=== PATIENT | male | born 1965 | race Native Hawaiian/Other Pacific Islander ===

== ENCOUNTER 2017-12-05 13:48 | Emergency (ER) | payer OTHER ==
[~2017-12-05] VITALS: Ht 182.9 cm; Wt 83.9 kg
[2017-12-05 14:34] LABS: PLATELET COUNT 115 K/uL (142-355)
[2017-12-05 14:50] LABS: POTASSIUM 3.7 mmol/L (3.6-5.2)
[2017-12-05 15:15] VITALS: BP 125/67; TEMP 97.7
[2017-12-05] MEDS ORDERED: DULOXETINE HCL60 MG PO (15:46)
[2017-12-05] MEDS ORDERED: MULTIVITAMI1 PO (15:46)
[2017-12-05] MEDS ORDERED: RISP1TAB PO (15:47)
[2017-12-05] MEDS ORDERED: LAXATIVE1 TAB PO (15:50)
[2017-12-05] MEDS ORDERED: ACID CONTROL MA20 MG PO (15:50)
[2017-12-05] MEDS ORDERED: SKIN PREP TOP (15:52)
[2017-12-05] MEDS ORDERED: OXYC5TAB24 PO (15:54)
[2017-12-05] MEDS ORDERED: ROWEEPRA500 MG PO (15:54)
[2017-12-05] MEDS ORDERED: ASCO500T18 PO (15:55)
[2017-12-05] MEDS ORDERED: GABA400C2 PO (15:55)
[2017-12-05] MEDS ORDERED: RISP2TAB2 PO (15:57)
[2017-12-05] MEDS ORDERED: TRAZ100T PO (15:58)
[2017-12-05] MEDS ORDERED: TYLENOL325 MG PO (15:59)
[2017-12-05] MEDS ORDERED: LORA2INJ21 IM (16:02)
[2017-12-05] MEDS ORDERED: NYST100010 EX (16:04)
[2017-12-05] MEDS ORDERED: DIVALPROEX125 MG PO (16:05)
== END 2017-12-05 15:15 | disposition other institution (70) ==
LOC: ED 13:48
DX: Z04.6 Encounter for general psychiatric examination, requested by authority (principal); R46.89 Other symptoms and signs involving appearance and behavior; I10 Essential (primary) hypertension
CPT/HCPCS: 36415; 80053; 81000; 85027; 93005; 99285

== ENCOUNTER 2021-12-07 13:21 | Emergency (ER) | payer OTHER ==
[~2021-12-07] VITALS: Ht 111.8 cm; Wt 68.5 kg
[~2021-12-07 13:21] MED LIST: ACID CONTROL MA20 MG PO; ARIPIPRAZOLE5 MG PO; ASCO500T18 PO; DIVALPROEX125 MG PO; DULO30CA PO; DULOXETINE HYDR60 MG PO; GABA300C2 PO; GABA400C2 PO; GNP SENNA LAX8.6 MG PO; LEXAPRO20 MG PO; LORA2INJ21 IM; MULTIVITAMI1 PO; NYST100010 EX; OXYC5TAB24 PO; RISP1TAB PO; RISP2TAB2 PO; ROWEEPRA500 MG PO; SKIN PREP TOP; TRAZ50TA36 PO; TYLENOL325 MG PO
[2021-12-07 13:32] VITALS: BP 164/69; TEMP 98.5
[2021-12-07 13:59] LABS: PLATELET COUNT 160 K/uL (142-355)
[2021-12-07 14:08] LABS: POTASSIUM 4.1 mmol/L (3.6-5.2)
[2021-12-07] MEDS ORDERED: ARIPIPRAZOLE10 MG PO (16:46)
[2021-12-07] MEDS ORDERED: ASPI325T40 PO (16:48)
[2021-12-07] MEDS ORDERED: CLOPIDOGREL75 MG PO (16:50)
[2021-12-07] MEDS ORDERED: CVS STOOL SOFT100 MG PO (16:52)
[2021-12-07] MEDS ORDERED: FERROUS SULF325 M1 PO (16:55)
[2021-12-07] MEDS ORDERED: OMEGA-3 PO (17:00)
[2021-12-07] MEDS ORDERED: GRALISE600 MG PO (17:03)
[2021-12-07] MEDS ORDERED: LISI10TA11 PO (17:05)
[2021-12-07] MEDS ORDERED: CRESTOR20 MG PO (17:07)
[2021-12-07] MEDS ORDERED: [UNRECOGNIZED DRUG - OTHER] PO (17:11)
[2021-12-07] MEDS ORDERED: CYCL10TA35 PO (17:12)
== END 2021-12-07 15:04 | disposition still patient (30) ==
LOC: ED 13:21
PROVIDERS: Hospitalist
DX: F20.89 Other schizophrenia (principal); F32.89 Other specified depressive episodes; R46.89 Other symptoms and signs involving appearance and behavior; Z11.52 Encounter for screening for COVID-19; Z04.6 Encounter for general psychiatric examination, requested by authority
CPT/HCPCS: 80053; 80164; 85027; 87635; 93005; 99283; U0003